=== PATIENT | male | born 1960 | race African-American/Black ===

== ENCOUNTER 2017-04-30 15:47 | Emergency (ER) | payer OTHER ==
[~2017-04-30] VITALS: Ht 177.8 cm; Wt 105.0 kg
[2017-04-30 15:53] VITALS: BP 124/91
== END 2017-04-30 23:00 | disposition left against medical advice (07) ==
LOC: ER 22:39
DX: Z53.21 Procedure and treatment not carried out due to patient leaving prior to being seen by health care provider (principal)